=== PATIENT | female | born 1940 | race Caucasian/White ===

== ENCOUNTER 2017-01-18 18:42 | Emergency (ER) | payer MEDICARE, OTHER | END 2017-01-18 22:10 | disposition home or self-care (01) | LOC: FER 18:42 | DX: S20.212A Contusion of left front wall of thorax, initial encounter (principal); I10 Essential (primary) hypertension; E03.9 Hypothyroidism, unspecified; F32.9 Major depressive disorder, single episode, unspecified; F17.210 Nicotine dependence, cigarettes, uncomplicated; Z79.899 Other long term (current) drug therapy; W01.0XXA Fall on same level from slipping, tripping and stumbling without subsequent striking against object, initial encounter; Y92.009 Unspecified place in unspecified non-institutional (private) residence as the place of occurrence of the external cause | CPT/HCPCS: 71101; 99283 ==

== ENCOUNTER 2022-01-08 13:01 | Emergency (ER) | payer OTHER ==
[~2022-01-08 13:01] MED LIST: BACTRIM DS TAB1 EACH PO; MUPIROCIN 2%22 GM TOP
[2022-01-08 14:01] LABS: BASOPHIL 0.4 % (0-2); EOSINOPHIL 0.4 % (0-7); HCT 44.6 % (37.0-47.0); HGB 14.4 g/dl (12.5-16.0); LYMPHOCYTE 10.4 % (15-48); MCH 28.1 pg (25.0-31.0); MCHC 32.3 g/dL (32.0-36.0); MCV 87.1 fL (78.0-100.0); MONOCYTE 5.7 % (0-12); NEUTROPHIL 82.7 % (41-80); NRBC 0; PLT 342 K/uL (150-400); RBC 5.12 M/uL (4.20-5.40); RDW 12.9 % (11.5-14.0); WBC 10.6 K/uL (4.0-10.5)
[2022-01-08 14:19] LABS: ALBUMIN 3.9 g/dL (3.4-5.0); BILIRUBIN - TOTAL 0.4 mg/dL (0.2-1.0); BUN/CREAT RATIO (CALC) 23.3 RATIO; CREATININE 0.73 mg/dL (0.51-0.95); POTASSIUM 3.6 mmol/L (3.5-5.1); TOTAL PROTEIN 7.9 g/dL (6.4-8.2)
[2022-01-08 15:22] LABS: INR 1.09 (0.9-1.2); PROTHROMBIN TIME 13.5 SECONDS (11.8-13.4); PTT 34.3 SECONDS (24.4-34.7)
[2022-01-08 15:23] LABS: D-DIMER 0.56 ug/mLFEU (0.00-0.41)
[2022-01-08 16:25] LABS: MAGNESIUM 1.8 mg/dL (1.8-2.4)
== END 2022-01-08 19:53 | disposition other institution (70) ==
LOC: FER 13:01
PROVIDERS: Emergency Medicine; Physician Assistant
DX: I21.4 Non-ST elevation (NSTEMI) myocardial infarction (principal); I48.91 Unspecified atrial fibrillation; I10 Essential (primary) hypertension; F17.210 Nicotine dependence, cigarettes, uncomplicated; Z79.82 Long term (current) use of aspirin; Z79.899 Other long term (current) drug therapy; Z20.822 Contact with and (suspected) exposure to COVID-19
CPT/HCPCS: 36415; 71045; 80053; 83735; 84484; 85025; 85379; 85610; 85730; 93005; J1644; J2270; J3490; U0002